=== PATIENT | female | born 1960 | race Caucasian/White ===

== ENCOUNTER → 2016-11-06 | Outpatient (CLI) | payer SELFPAY ==
[2016-11-06 14:18] LABS: BUN 13 mg/dL (7-18)
[2016-11-06 14:24] LABS: GFR (ESTIMATED) 74 ML/MIN (59-)
--- NOTE | 2016-11-06 16:59 | RADIOLOGY REPORT PS360 ---
KNEE-4 OR 5 VIEWS-RT COMPARISON: None HISTORY: Right knee pain TECHNIQUE: AP, PA and lateral weight-bearing views and sunrise view FINDINGS: There is mild joint space narrowing medially and there is minor spurring the tibial spines. There is no fracture or loose body. There is a small fabella noted. The patella is intact and I see no definite effusion. IMPRESSION: Minor degenerative change medial joint space, no acute pathology noted
== END ==
LOC: LAB 12:12 → RAD 12:12
PROVIDERS: Orthopaedic Surgery
DX: Z01.818 Encounter for other preprocedural examination (principal); M25.561 Pain in right knee